=== PATIENT | male | born 1985 | race Caucasian/White ===

== ENCOUNTER 2016-12-08 00:44 | Emergency (ER) | payer OTHER ==
[2016-12-08 00:49] VITALS: TEMP 97.1
--- NOTE | 2016-12-08 01:26 | XR ---
EXAMINATION TYPE: XR shoulder complete RT DATE OF EXAM: 12/08/2016 1:15 AM CLINICAL HISTORY: Patient was working out and heard a pop. Shoulder pain history of previous injury t o the right shoulder. TECHNIQUE: Three views of the right shoulder are obtained. COMPARISON: None FINDINGS: There is no acute fracture/dislocation evident. The acromioclavicular and glenohumeral marques int spaces appear within normal limits. Mild degenerative changes are suggested in the right acromioc lavicular joint. The visualized ribs are intact and unremarkable. IMPRESSION: 1. There is no acute fracture or dislocation. A clinical correlation is recommended as there is suboptimal positioning of the images.
--- NOTE | 2016-12-08 01:30 | ED ---
Upper Extremity HPI - General Chief Complaint: Extremity Injury, Upper Stated Complaint: shoulder pain Time Seen by Provider: 12/08/16 01:05 Source: patient Mode of arrival: ambulatory Limitations: no limitations - History of Present Illness Initial Comments: Patient is a 31-year-old male with chief complaint of right shoulder pain. Patient reports that he was doing pushups while working out and felt a popping sensation and shoulder. He states that his pain is mainly over the shoulder denies any elbow or wrist pain. He states that he's had previous right shoulder injuries before.Patient denies any recent fever, chills, shortness of breath, chest pain, back pain, abdominal pain, nausea vomiting, numbness or tingling, dysuria or hematuria, constipation or diarrhea, headaches or visual changes, or any other current symptoms. Patient is currently residing at [facility] in rehab facility. - Related Data Home Medications Medication Instructions Recorded Confirmed No Known Home Medications [No 12/08/16 12/08/16 Known Home Medications] Allergies Allergy/AdvReac Type Severity Reaction Status Date / Time No Known Allergies Allergy Verified 12/08/16 00:47 Review of Systems ROS Statement: Those systems with pertinent positive or pertinent negative responses have been documented in the HPI. ROS Other: All systems not noted in ROS Statement are negative. Past Medical History Past Medical History: No Reported History History of Any Multi-Drug Resistant Organisms: None Reported Past Surgical History: No Surgical Hx Reported Past Psychological History: Anxiety Smoking Status: Current every day smoker Past Alcohol Use History: None Reported Past Drug Use History: Heroin, Marijuana General Exam - General Exam Comments Initial Comments: Patient is a well-appearing 31-year-old male. No acute distress. Limitations: no limitations General appearance: alert, in no apparent distress Head exam: Present: atraumatic, normocephalic, normal inspection Eye exam: Present: normal appearance, PERRL, EOMI. Absent: scleral icterus, conjunctival injection, periorbital swelling ENT exam: Present: normal exam, mucous membranes moist Neck exam: Present: normal inspection. Absent: tenderness, meningismus, lymphadenopathy Respiratory exam: Present: normal lung sounds bilaterally. Absent: respiratory distress, wheezes, rales, rhonchi, stridor Cardiovascular Exam: Present: regular rate, normal rhythm, normal heart sounds. Absent: systolic murmur, diastolic murmur, rubs, gallop, clicks GI/Abdominal exam: Present: soft, normal bowel sounds. Absent: distended, tenderness, guarding, rebound, rigid Extremities exam: Present: normal inspection, full ROM, normal capillary refill. Absent: tenderness, pedal edema, joint swelling, calf tenderness Right Shoulder Exam: Present: normal inspection, tenderness (Over her anterior shoulder.), tenderness over AC joint. Absent: full ROM (Patient has limited abduction and over the headmovements.), swelling, abrasion, laceration, ecchymosis, deformity, crepitus, dislocation Upper Arm exam: Present: normal inspection, full ROM. Absent: tenderness, swelling Elbow exam: Present: normal inspection, full ROM. Absent: tenderness, swelling , abrasion Forearm Wrist exam: Present: normal inspection, full ROM. Absent: tenderness, swelling, abrasion Hand Wrist exam: Present: normal inspection, full ROM. Absent: tenderness, swelling, abrasion Back exam: Present: normal inspection Neurological exam: Present: alert, oriented X3, CN II-XII intact Psychiatric exam: Present: normal affect, normal mood Skin exam: Present: warm, dry, intact, normal color. Absent: rash Course Vital Signs 12/08/16 12/08/16 00:47 01:49 Temperature 97.1 F L Pulse Rate 92 71 Respiratory 18 16 Rate Blood Pressure 118/75 118/69 O2 Sat by Pulse 100 97 Oximetry Medical Decision Making - Medical Decision Making Patient is a 31-year-old male with chief complaint of right shoulder pain after injuring it while doing pushups. Patient reports he felt a popping sensation. X-ray was reviewed and no evidence of acute dislocation. Patient is neurovascularly intact. No evidence of fractures. Patient is given a sling. There is a possibility could be some AC disruption as well as tendon ligament injuries. Patient advised to take Motrin Tylenol for pain and to follow-up with orthopedic physician. Return parameters were discussed. Patient understands treatment plan will comply. The nurse did call report for [facility]. - Radiology Data Radiology results: report reviewed No acute fracture dislocation. Clinical correlation is recommended is her suboptimal positioning of the images. There is acromioclavicular and glenohumeral joint spaces appear within normal limits. Mild degenerative changes are suggested and the right acromioclavicular joint. The visualized ribs are intact and unremarkable. Disposition Clinical Impression: Sprain of right shoulder Disposition: HOME SELF-CARE Condition: Good Instructions: Rotator Cuff Injury (ED) Additional Instructions: Motrin and Tylenol for pain. Follow-up with orthopedic physician. Return to the emergency room if any alarming signs or symptoms occur. Referrals: Nonstaff,Physician [Primary Care Provider] - 1-2 days Alvino Ventura MD [Medical Doctor] - 1-2 days Time of Disposition: 01:44
[2016-12-08 01:50] VITALS: BP 118/69; PULSE 71; RESP 16
== END 2016-12-08 01:49 | disposition home or self-care (01) ==
LOC: EC 00:44
DX: S43.401A Unspecified sprain of right shoulder joint, initial encounter (principal); Y93.B2 Activity, push-ups, pull-ups, sit-ups; F17.200 Nicotine dependence, unspecified, uncomplicated
CPT/HCPCS: 99283